=== PATIENT | male | born 1960 | race Caucasian/White ===

== ENCOUNTER 2019-02-01 07:06 | Day surgery (SDC) | payer MEDICAID ==
[2019-01-25 15:51] LABS: BASOPHILS % (AUTO) 0.7 % (0-1); EOSINOPHILS # (AUTO) 0.4 X10'3 (0-0.9); EOSINOPHILS % (AUTO) 4.9 % (0-6); LYMPHOCYTES # (AUTO) 2.4 X10'3 (1.1-4.8); LYMPHOCYTES % (AUTO) 31.3 % (21-51); MEAN CORPUSCULAR HEMOGLOBIN 29.7 PG (27.0-31.0); MEAN CORPUSCULAR HGB CONC 33.4 g/dL (33.0-36.5); MONOCYTES # (AUTO) 0.5 X10'3 (0-0.9); MONOCYTES % (AUTO) 6.5 % (2-12); NEUTROPHILS # (AUTO) 4.3 X10'3 (1.8-7.7); NEUTROPHILS % (AUTO) 56.6 % (42-75); PRE OP HEMATOCRIT 40.8 % (42.0-52.0); PRE OP HEMOGLOBIN 13.6 g/dL (14.0-17.9); PRE OP PLATELET COUNT 170 X10'3 (140-440); RED BLOOD COUNT 4.59 X10'6 (4.70-6.10); RED CELL DISTRIBUTION WIDTH 14.7 % (11.5-14.5)
[2019-01-25 16:05] LABS: ALBUMIN 3.9 G/DL (3.4-5.0); ALBUMIN/GLOBULIN RATIO 1.3 (1.1-1.5); ALKALINE PHOSPHATASE 92 IU/L (46-116); BLOOD UREA NITROGEN 15 MG/DL (7-18); BUN/CREATININE RATIO 10.1 (5.4-32.0); CALCIUM 9.9 MG/DL (8.5-10.1); CHLORIDE 104 MMOL/L (99-107); CREATININE 1.48 MG/DL (0.60-1.10); PRE OP ALT 45 U/L (30-65); PRE OP ANION GAP 7 (8-16); PRE OP AST 26 U/L (10-37); PRE OP BILIRUB, TOTAL 0.3 MG/DL (0.0-1.0); PRE OP GLUCOSE 84 MG/DL (70-104); PRE OP POTASSIUM 5.2 MMOL/L (3.4-5.1); PRE OP SODIUM 140 MMOL/L (135-145); TOTAL CARBON DIOXIDE 28.9 MMOL/L (24-32); TOTAL PROTEIN 6.8 G/DL (6.4-8.2); eGFR 49 ML/MIN
[~2019-02-01] VITALS: Ht 188 cm; Wt 120.2 kg
[2019-02-01] VITALS (8 sets, daily range): BP systolic 136–149; BP diastolic 72–88
[~2019-02-01 07:06] MED LIST: ASPI81TA52 PO; ATOR40TA71 PO; BUPIVAcaine/PF 2.5mg/ml (0.25%) 10ml vial ONE; BUSP10TA3 PO; GABA-532 PO; IBUP-1984 PO; LISI-600 PO; RANI300T4 PO; TRAZ150T78 PO; albuterol 2.5 MG/3 ML nebule NEB ONE; ceFAZolin 2gm in dextrose, iso 100 ML IV ONE; famotidine 20mg tablet PO ONE; ringers solution, lacted 1,000 ML IV SCH
[2019-02-01] MEDS ORDERED: ROPIVAcaine 0.5% (5mg/ml) 30ml vial ONE (09:25)
[2019-02-01] MEDS ORDERED: cloNIDine hcl/PF 100mcg/ml inj ONE (09:25)
[2019-02-01] MEDS ORDERED: fentaNYL/PF 50MCG/1 ML 2ML syringe ONE (10:07)
[2019-02-01] MEDS ORDERED: midazolam 2 mg/2 ml injection ONE (10:08)
[2019-02-01] MEDS ORDERED: sevoflurane 250ml liquid IH ONE (10:08)
[2019-02-01] MEDS ORDERED: BUPIVAcaine/PF 2.5mg/ml (0.25%) 10ml vial ONE (10:55)
[2019-02-01] MEDS ORDERED: propofol inj 20 ML IV ONE (11:14)
[2019-02-01] MEDS ORDERED: dexamethasone sod phosphate 4mg/ml inj. ONE (11:14)
--- NOTE | 2019-02-01 11:30 | NUR ---
Received from OR via [facility], accompanied by Anesthesiologist dr childers and report given by Anesthesiolgist. patient a&ox4, DENIES PAIN, V/S WNL, NEUROVASCULAR CHECKS INTACT. RUE PIV, SCD ON, ICE TO LUE AND ELEVATED, RUE DRESSING/SPLINT CDI.
[2019-02-01] MEDS ORDERED: ringers solution, lacted 1,000 ML IV SCH (11:39)
[2019-02-01] MEDS ORDERED: ondansetron/PF 4mg/2ml inj IV PRN (11:40)
[2019-02-01] MEDS ORDERED: meperidine/PF 25mg/ml syringe IV PRN ×3 (11:40)
[2019-02-01] MEDS ORDERED: proCHLORperazine 10 MG/2 ml inj IV PRN (11:40)
[2019-02-01] MEDS ORDERED: morphine 4 MG/ML inj SYRINge IV PRN ×2 (11:40)
--- NOTE | 2019-02-01 12:20 | NUR ---
patient a&ox4, DENIES PAIN, V/S WNL, NEUROVASCULAR CHECKS INTACT. RUE PIV, SCD ON, ICE TO LUE AND ELEVATED, LUE DRESSING CDI. ALL DC CRITERIA HAS BEEN MET. IV OUT WITHOUT ISSUE OR COMPLICATION. DENIES PAIN. FAMILY PRESENT FOR DC PAPERWORK. ALL QUESTIONS ANSWERED, FAMILY ASSISTED PATIENT IN GETTING DRESSED, OUT VIA WHEELCHAIR TO PERSONAL VEHICLE WHERE FAMILY DROVE PATIENT HOME. ALL DC CRITERIA HAS BEEN MET AND DRESSING IS CDI.
== END 2019-02-01 12:20 | disposition home or self-care (01) ==
LOC: PAS 07:06
PROVIDERS: ATTEND Orthopaedic Surgery Hand Surgery
DX: S52.202K Unspecified fracture of shaft of left ulna, subsequent encounter for closed fracture with nonunion (principal); M19.90 Unspecified osteoarthritis, unspecified site; F17.210 Nicotine dependence, cigarettes, uncomplicated; X58.XXXD Exposure to other specified factors, subsequent encounter; Z79.899 Other long term (current) drug therapy; Z72.89 Other problems related to lifestyle
CPT/HCPCS: 25405; 36415; 71046; 80053; 82948; 85025; 93005; 94640; 94760; A6222; A6449; C1713; J0690; J0735; J1100; J2250; J2704; J3010; J3490; J7120; A7000; J2795

== ENCOUNTER 2019-02-28 18:57 | Inpatient (IN) | payer MEDICAID ==
[~2019-02-28] VITALS: Ht 190.5 cm; Wt 124.0 kg
[~2019-02-28 18:57] MED LIST changes: -BUPIVAcaine/PF 2.5mg/ml (0.25%) 10ml vial ONE; -albuterol 2.5 MG/3 ML nebule NEB ONE; -ceFAZolin 2gm in dextrose, iso 100 ML IV ONE; -famotidine 20mg tablet PO ONE; -ringers solution, lacted 1,000 ML IV SCH
[2019-02-28 19:17] LABS: BASOPHILS # (AUTO) 0.2 X10'3 (0-0.2); BASOPHILS % (AUTO) 1.9 % (0-1); EOSINOPHILS # (AUTO) 0.4 X10'3 (0-0.9); EOSINOPHILS % (AUTO) 4.2 % (0-6); HEMOGLOBIN 13.7 g/dl (14.0-17.9); LYMPHOCYTES % (AUTO) 31.7 % (21-51); MEAN CORPUSCULAR HGB CONC 33.3 g/dL (33.0-36.5); MEAN PLATELET VOLUME 10.5 FL (7.4-10.4); MONOCYTES # (AUTO) 0.6 X10'3 (0-0.9); NEUTROPHILS # (AUTO) 5.2 X10'3 (1.8-7.7); NEUTROPHILS % (AUTO) 56.2 % (42-75); PLATELET COUNT 185 X10'3 (140-440); RED BLOOD COUNT 4.55 X10'6 (4.70-6.10); RED CELL DISTRIBUTION WIDTH 14.3 % (11.5-14.5); WHITE BLOOD COUNT 9.3 X10'3 (4.5-11.0)
[2019-02-28 19:31] LABS: ALANINE AMINOTRANSFERASE 25 U/L (12-78); ALBUMIN 3.9 G/DL (3.4-5.0); ALBUMIN/GLOBULIN RATIO 1.5 (1.1-1.5); ALKALINE PHOSPHATASE 93 IU/L (46-116); ANION GAP 9 (8-16); ASPARTATE AMINO TRANSFERASE 14 U/L (10-37); BILIRUBIN,TOTAL 0.2 MG/DL (0.1-1.0); BLOOD UREA NITROGEN 24 MG/DL (7-18); BUN/CREATININE RATIO 11.9 (5.4-32.0); CALCIUM 9.8 MG/DL (8.5-10.1); CHLORIDE 105 MMOL/L (99-107); CREATININE 2.02 MG/DL (0.60-1.10); GLUCOSE 107 MG/DL (70-104); POTASSIUM 4.8 MMOL/L (3.5-5.1); SODIUM 138 MMOL/L (135-145); TOTAL CARBON DIOXIDE 23.9 MMOL/L (24-32); TOTAL PROTEIN 6.5 G/DL (6.4-8.2); eGFR 34 ML/MIN
[2019-02-28 19:33] LABS: PARTIAL THROMBOPLASTIN TIME 28 SECONDS (22-32)
[2019-02-28] MEDS ORDERED: oxyCODONE/APAP 5-325mg tablet PO STA (20:14)
--- NOTE | 2019-02-28 20:15 | NUR ---
PT UPDATED ON TROPONIN. PT STATES THE ONLY THING THAT HURTS IS HIS ARM. INFORMED MD AND ORDERED PAIN MED
[2019-02-28] MEDS ORDERED: LOSA25TA96 PO (21:15)
[2019-02-28] MEDS ORDERED: ACET500C5 PO (21:17)
[2019-02-28] MEDS ORDERED: METO100T14 PO (21:18)
[2019-02-28] MEDS ORDERED: CYCL-394 (21:19)
[2019-02-28] MEDS ORDERED: ASPI81TA52 PO (21:24)
[2019-02-28] MEDS ORDERED: NITR0.4T51 SL (21:25)
[2019-02-28] MEDS ORDERED: CHOL400T PO (21:25)
[2019-02-28] MEDS ORDERED: mag hydrox/Alum hydrox/simeth 30ml oral suspension PO PRN (21:50)
[2019-02-28] MEDS ORDERED: magnesium hydroxide 30ml (MOM) UD suspension PO PRN (21:50)
[2019-02-28] MEDS ORDERED: ondansetron/PF 4mg/2ml inj IV PRN (21:50)
[2019-02-28] MEDS ORDERED: acetaminophen 325mg tablet PO PRN (21:50)
--- NOTE | 2019-02-28 22:35 | NUR ---
Patient in room PCU 3018. I have received report from Hoda JORDAN and had the opportunity to ask questions and assume patient care.
[2019-02-28 22:45] VITALS: BP 135/67
--- NOTE | 2019-02-28 22:45 | NUR ---
Patient brought up to room 3018A via gurney from the ER. Patient walked to bed steadily. All belongings on person, patient oriented to room, call light and plan of care. All questions answered. Vital signs stable and no chest pain complaint at this time. Will continue to monitor.
[2019-03-01] VITALS (12 sets, daily range): BP systolic 106–158; BP diastolic 63–81
[2019-03-01] MEDS: oxyCODONE/APAP 10/325mg tablet PO PRN ×3 (00:44→12:26)
[2019-03-01 01:51] LABS: BASOPHILS # (AUTO) 0.1 X10'3 (0-0.2); BASOPHILS % (AUTO) 1.5 % (0-1); EOSINOPHILS # (AUTO) 0.3 X10'3 (0-0.9); EOSINOPHILS % (AUTO) 3.5 % (0-6); HEMOGLOBIN 13.5 g/dl (14.0-17.9); LYMPHOCYTES # (AUTO) 2.7 X10'3 (1.1-4.8); LYMPHOCYTES % (AUTO) 35.5 % (21-51); MEAN CORPUSCULAR HEMOGLOBIN 30.2 PG (27.0-31.0); MEAN CORPUSCULAR HGB CONC 33.8 g/dL (33.0-36.5); MEAN CORPUSCULAR VOLUME 89.3 FL (78-98); MEAN PLATELET VOLUME 10.2 FL (7.4-10.4); MONOCYTES # (AUTO) 0.4 X10'3 (0-0.9); NEUTROPHILS # (AUTO) 4.2 X10'3 (1.8-7.7); NEUTROPHILS % (AUTO) 54.5 % (42-75); PLATELET COUNT 159 X10'3 (140-440); RED BLOOD COUNT 4.48 X10'6 (4.70-6.10); RED CELL DISTRIBUTION WIDTH 14.5 % (11.5-14.5); WHITE BLOOD COUNT 7.7 X10'3 (4.5-11.0)
[2019-03-01 02:03] LABS: ALANINE AMINOTRANSFERASE 25 U/L (12-78); ALBUMIN 3.5 G/DL (3.4-5.0); ALBUMIN/GLOBULIN RATIO 1.3 (1.1-1.5); ALKALINE PHOSPHATASE 87 IU/L (46-116); ANION GAP 8 (8-16); ASPARTATE AMINO TRANSFERASE 15 U/L (10-37); BILIRUBIN,TOTAL 0.2 MG/DL (0.1-1.0); BLOOD UREA NITROGEN 22 MG/DL (7-18); BUN/CREATININE RATIO 12.7 (5.4-32.0); CALCIUM 9.7 MG/DL (8.5-10.1); CHLORIDE 106 MMOL/L (99-107); CREATININE 1.73 MG/DL (0.60-1.10); GLUCOSE 125 MG/DL (70-104); POTASSIUM 4.1 MMOL/L (3.5-5.1); SODIUM 139 MMOL/L (135-145); TOTAL CARBON DIOXIDE 25.5 MMOL/L (24-32); TOTAL PROTEIN 6.1 G/DL (6.4-8.2); eGFR 41 ML/MIN
--- NOTE | 2019-03-01 06:27 | NUR ---
Problems reprioritized. Patient report given, questions answered & plan of care reviewed with Jessica JORDAN.
[2019-03-01] MEDS: busPIRone 5mg tablet PO SCH ×2 (07:47→12:26)
[2019-03-01] MEDS ORDERED: metoprolol tartrate 1mg/ml inj IV PRN (07:50)
[2019-03-01] MEDS ORDERED: nitroGLYCERIN 0.4mg SUBLingual tab SL PRN (07:50)
[2019-03-01] MEDS ORDERED: regadenoson 0.4mg/5ml syringe IV PRN (07:50)
[2019-03-01] MEDS ORDERED: aminophylline 250mg/10ml inj. IV PRN (07:50)
[2019-03-01] MEDS ORDERED: lisinopril 10 MG tablet PO SCH (08:00)
[2019-03-01] MEDS ORDERED: losartan 25mg tablet PO SCH (08:00)
[2019-03-01] MEDS ORDERED: atorvastatin 20mg tablet PO SCH (08:00)
[2019-03-01] MEDS ORDERED: metoprolol tartrate 50mg tablet PO SCH (08:00)
[2019-03-01] MEDS ORDERED: guaiFENesin ER 600mg tablet PO SCH (08:00)
[2019-03-01] MEDS ORDERED: gabapentin 300mg capsule PO SCH ×2 (08:00→21:00)
[2019-03-01] MEDS ORDERED: heparin, porcine 5000 units/ml vial SQ SCH (08:00)
[2019-03-01] MEDS ORDERED: aspirin 81mg tab.chew PO SCH (08:30)
[2019-03-01] MEDS ORDERED: aspirin 325mg tablet PO SCH (08:30)
[2019-03-01 08:47] LABS: CHOL/HDL RATIO 4.7 (0.00-4.99); CHOLESTEROL 137 MG/DL (0-200); HDL CHOLESTEROL 29 MG/DL (35-60); LDL CHOLESTEROL 95 MG/DL (50-100); TRIGLYCERIDES 136 MG/DL (20-135)
[2019-03-01] MEDS ORDERED: regadenoson 0.4mg/5ml syringe IV ONE (10:40)
[2019-03-01] MEDS ORDERED: aminophylline inj. 10 ML IV ONE (10:40)
--- NOTE | 2019-03-01 13:46 | NUR ---
PAGER ID: [phone] MESSAGE: [id number] Emma Parekh resulted, okay to feed? Jessica JORDAN [phone]
--- NOTE | 2019-03-01 15:57 | NUR ---
Patient discharged stable, discharge instructions given, patient verbalized understanding, PIV removed, cannula intact, tele box removed, personal belongings returned to patient. pt wheeled out by staff via w/c for transport home via [email or web address]
--- NOTE | 2019-03-01 16:00 | NUR ---
Orientee documentation: I have reviewed and agree with interventions, assessments performed and documented by NIKKI García.
[2019-03-01] MEDS ORDERED: traZODone 150mg tablet PO SCH (21:00)
[2019-03-01] MEDS ORDERED: famotidine 20mg tablet PO SCH (21:00)
== END 2019-03-01 15:18 | disposition home or self-care (01) | DRG 190 ==
LOC: ER 18:57 → PCU 3S 22:45
PROVIDERS: ADMIT Internal Medicine; ATTEND Internal Medicine
PROC: 4A02XM4 Measurement of Cardiac Total Activity, External Approach (ICD-10-PCS; principal; 2019-03-01)
PROC: 3E033HZ Introduction of Radioactive Substance into Peripheral Vein, Percutaneous Approach (ICD-10-PCS; 2019-03-01)
DX: I21.4 Non-ST elevation (NSTEMI) myocardial infarction (principal); E11.22 Type 2 diabetes mellitus with diabetic chronic kidney disease; E11.51 Type 2 diabetes mellitus with diabetic peripheral angiopathy without gangrene; N17.9 Acute kidney failure, unspecified; N18.3 Chronic kidney disease, stage 3 (moderate); E78.5 Hyperlipidemia, unspecified; I25.110 Atherosclerotic heart disease of native coronary artery with unstable angina pectoris; F12.90 Cannabis use, unspecified, uncomplicated; E78.00 Pure hypercholesterolemia, unspecified; F32.9 Major depressive disorder, single episode, unspecified; G47.33 Obstructive sleep apnea (adult) (pediatric); I12.9 Hypertensive chronic kidney disease with stage 1 through stage 4 chronic kidney disease, or unspecified chronic kidney disease; K21.9 Gastro-esophageal reflux disease without esophagitis; Z72.0 Tobacco use; Z80.1 Family history of malignant neoplasm of trachea, bronchus and lung; Z82.49 Family history of ischemic heart disease and other diseases of the circulatory system; Z82.5 Family history of asthma and other chronic lower respiratory diseases; Z88.8 Allergy status to other drugs, medicaments and biological substances; Z91.030 Bee allergy status; Z79.899 Other long term (current) drug therapy; Z79.82 Long term (current) use of aspirin; Z71.6 Tobacco abuse counseling
CPT/HCPCS: 36415; 71045; 78452; 80053; 80061; 84484; 85025; 85610; 85730; 87070; 93005; 93017; 93306; 99285; A9500; G0378; J0280; J1644

== ENCOUNTER 2019-03-10 20:24 | Emergency (ER) | payer MEDICAID ==
[~2019-03-10] VITALS: Ht 190.5 cm; Wt 94.3 kg
[~2019-03-10 20:24] MED LIST changes: +ACET500C5 PO; +CHOL400T PO; +CYCL-394; -LISI-600 PO; +LOSA25TA96 PO; +METO100T14 PO; +NITR0.4T51 SL
[2019-03-10 20:27] VITALS: BP 156/87
--- NOTE | 2019-03-10 23:17 | NUR ---
cast removed by tech per PA order. pt now has pain. provider will examine
[2019-03-10] MEDS ORDERED: HYDROcodone/acetaminophen 5mg/325mg tablet PO ONE (23:30)
== END 2019-03-10 23:40 | disposition home or self-care (01) ==
LOC: ER 20:25
DX: T81.89XA Other complications of procedures, not elsewhere classified, initial encounter (principal); M79.632 Pain in left forearm; I25.10 Atherosclerotic heart disease of native coronary artery without angina pectoris; E78.00 Pure hypercholesterolemia, unspecified; I10 Essential (primary) hypertension; I25.2 Old myocardial infarction; K21.9 Gastro-esophageal reflux disease without esophagitis; G89.29 Other chronic pain; Z46.89 Encounter for fitting and adjustment of other specified devices; Z98.890 Other specified postprocedural states; Z91.030 Bee allergy status; Z79.82 Long term (current) use of aspirin; Z79.899 Other long term (current) drug therapy; Y83.8 Other surgical procedures as the cause of abnormal reaction of the patient, or of later complication, without mention of misadventure at the time of the procedure; Y92.89 Other specified places as the place of occurrence of the external cause
CPT/HCPCS: 99282

== ENCOUNTER 2019-12-20 07:13 | Day surgery (SDC) | payer MEDICAID ==
[2019-12-12 11:40] LABS: PRE OP HEMOGLOBIN 14.7 g/dL (14.0-17.9); RED CELL DISTRIBUTION WIDTH 14.2 % (11.5-14.5)
[2019-12-12 11:42] LABS: BASOPHILS # (AUTO) 0.1 X10'3 (0-0.2); BASOPHILS % (AUTO) 1.3 % (0-1); EOSINOPHILS # (AUTO) 0.2 X10'3 (0-0.9); EOSINOPHILS % (AUTO) 3.4 % (0-6); LYMPHOCYTES # (AUTO) 1.8 X10'3 (1.1-4.8); LYMPHOCYTES % (AUTO) 26.3 % (21-51); MEAN CORPUSCULAR HEMOGLOBIN 30.5 PG (27.0-31.0); MEAN CORPUSCULAR VOLUME 89.7 FL (78-98); MONOCYTES # (AUTO) 0.4 X10'3 (0-0.9); MONOCYTES % (AUTO) 5.9 % (2-12); NEUTROPHILS # (AUTO) 4.3 X10'3 (1.8-7.7); NEUTROPHILS % (AUTO) 63.1 % (42-75); PRE OP HEMATOCRIT 43.1 % (42.0-52.0); PRE OP PLATELET COUNT 190 X10'3 (140-440); RED BLOOD COUNT 4.81 X10'6 (4.70-6.10)
[2019-12-12 11:57] LABS: ALBUMIN 4.5 G/DL (3.4-5.0); ALBUMIN/GLOBULIN RATIO 1.6 (1.1-1.5); ALKALINE PHOSPHATASE 107 IU/L (46-116); BLOOD UREA NITROGEN 13 MG/DL (7-18); BUN/CREATININE RATIO 8.2 (5.4-32.0); CALCIUM 10.6 MG/DL (8.5-10.1); CHLORIDE 105 MMOL/L (99-107); CREATININE 1.59 MG/DL (0.60-1.10); PRE OP ALT 37 U/L (30-65); PRE OP ANION GAP 2 (8-16); PRE OP AST 18 U/L (10-37); PRE OP BILIRUB, TOTAL 0.3 MG/DL (0.0-1.0); PRE OP GLUCOSE 97 MG/DL (70-104); PRE OP POTASSIUM 4.9 MMOL/L (3.4-5.1); PRE OP SODIUM 139 MMOL/L (135-145); TOTAL CARBON DIOXIDE 31.7 MMOL/L (24-32); TOTAL PROTEIN 7.4 G/DL (6.4-8.2); eGFR 45 ML/MIN
[~2019-12-20] VITALS: Ht 188 cm; Wt 114.0 kg
[~2019-12-20 07:13] MED LIST changes: +ALBU8.5H8 INH; -ATOR40TA71 PO; -CHOL400T PO; -CYCL-394; +FAMO20TA82 PO; +FLO0.4C PO; +LURA80TA3 PO; -METO100T14 PO; -RANI300T4 PO; +albuterol 2.5 MG/3 ML nebule NEB ONE; +ceFAZolin 2gm in dextrose, iso 50 ML IV ONE; +famotidine 20mg tablet PO ONE; +ringers solution, lacted 1,000 ML IV SCH
[2019-12-20 08:00] VITALS: BP 110/66
[2019-12-20] MEDS ORDERED: LIDOcaine 0.5% (5mg/ml) 50ml vial ONE (09:45)
[2019-12-20] MEDS ORDERED: BUPIVAcaine/PF 2.5mg/ml (0.25%) 10ml vial IJ ONE (10:16)
[2019-12-20] MEDS ORDERED: BUPIVAcaine/PF 2.5mg/ml (0.25%) 10ml vial ONE (10:21)
[2019-12-20] MEDS ORDERED: BUPIVAcaine/PF 2.5 mg/ml (0.25%) 30ml vial ONE (10:32)
[2019-12-20] MEDS ORDERED: fentaNYL/PF 50MCG/1 ML 2ML syringe ONE (10:36)
[2019-12-20] MEDS ORDERED: midazolam 2 mg/2 ml injection ONE (10:37)
[2019-12-20] MEDS ORDERED: propofol inj 20 ML IV ONE ×2 (11:14)
--- NOTE | 2019-12-20 11:20 | NUR ---
Received from OR via BED, accompanied by Anesthesiologist DR SAL and report given by Anesthesiolgist. PATIENT A&OX4, DENIES PAIN, V/S WNL, NEUROVASCULAR CHECKS INTACT, 20G PIV RUE, SCD ON, DRESSING TO LEFT WRIST CDI ELEVATED WITH ICEBAG APPLIED.
[2019-12-20 11:25] VITALS: BP 124/66
[2019-12-20 11:35] VITALS: BP 119/73
[2019-12-20 11:45] VITALS: BP 126/74
[2019-12-20 11:55] VITALS: BP 129/77
--- NOTE | 2019-12-20 11:55 | NUR ---
PATIENT A&OX4, DENIES PAIN, V/S WNL, NEUROVASCULAR CHECKS INTACT, 20G PIV RUE D/C, SCD OFF, DRESSING TO LEFT WRIST CDI ELEVATED WITH ICE BAG APPLIED. I HAVE REVIEWED D/C INSTRUCTIONS WITH PATIENT AND FAMILY AND THEY HAVE VERBALIZED UNDERSTANDING. PATIENT D/C HOME WITH ALL BELONGINGS AND FAMILY GAVE TRANSPORT HOME.
[2019-12-20] MEDS ORDERED: ringers solution, lacted 1,000 ML IV SCH (11:58)
[2019-12-20] MEDS ORDERED: ondansetron/PF 4mg/2ml inj IV PRN (12:00)
[2019-12-20] MEDS ORDERED: morphine 2 MG/ML inj. syringe IV PRN (12:00)
[2019-12-20] MEDS ORDERED: HYDROmorphone inj. 0.5 MG/0.5 ML DISP.SYRIN IV PRN ×2 (12:00)
[2019-12-20] MEDS ORDERED: morphine 4 MG/ML inj SYRINge IV PRN (12:00)
== END 2019-12-20 11:55 | disposition home or self-care (01) ==
LOC: PAS 07:13
PROVIDERS: ATTEND Orthopaedic Surgery Hand Surgery
DX: S63.592A Other specified sprain of left wrist, initial encounter (principal); G56.02 Carpal tunnel syndrome, left upper limb; I25.2 Old myocardial infarction; I25.10 Atherosclerotic heart disease of native coronary artery without angina pectoris; J45.909 Unspecified asthma, uncomplicated; G47.33 Obstructive sleep apnea (adult) (pediatric); I12.9 Hypertensive chronic kidney disease with stage 1 through stage 4 chronic kidney disease, or unspecified chronic kidney disease; N18.3 Chronic kidney disease, stage 3 (moderate); F41.9 Anxiety disorder, unspecified; F43.10 Post-traumatic stress disorder, unspecified; Z79.899 Other long term (current) drug therapy; Z72.89 Other problems related to lifestyle; Z87.891 Personal history of nicotine dependence; X58.XXXA Exposure to other specified factors, initial encounter; Y93.89 Activity, other specified; Y92.89 Other specified places as the place of occurrence of the external cause; Y99.8 Other external cause status
CPT/HCPCS: 29846; 64721; 80053; 82948; 85025; 93005; J2001; J2250; J2704; J3010; J3490; A4215; A7000; J7120

== ENCOUNTER 2022-04-26 11:33 | Day surgery (SDC) | payer MEDICAID ==
[2022-04-21 12:30] LABS: ALBUMIN 4.3 G/DL (3.4-5.0); ANION GAP 5 (8-16); BLOOD UREA NITROGEN 13 MG/DL (7-18); CALCIUM 10.1 MG/DL (8.5-10.1); CHLORIDE 105 MMOL/L (99-107); CREATININE 1.44 MG/DL (0.60-1.10); GLUCOSE 87 MG/DL (70-104); POTASSIUM 4.4 MMOL/L (3.5-5.1); SODIUM 136 MMOL/L (135-145); TOTAL CARBON DIOXIDE 26.2 MMOL/L (24-32); eGFR 50 ML/MIN
[2022-04-21 12:35] LABS: APTT 24 SECONDS (22-32)
[2022-04-26] VITALS (9 sets, daily range): BP systolic 104–154; BP diastolic 48–65
[~2022-04-26] VITALS: Ht 188 cm; Wt 130.6 kg
[~2022-04-26 11:33] MED LIST changes: +ALBU8.5H17 INH; -ALBU8.5H8 INH; +LURA80TA2 PO; -LURA80TA3 PO; -albuterol 2.5 MG/3 ML nebule NEB ONE; -ceFAZolin 2gm in dextrose, iso 50 ML IV ONE; -famotidine 20mg tablet PO ONE; -ringers solution, lacted 1,000 ML IV SCH
[2022-04-26 12:00] LABS: BASOPHILS # (AUTO) 0.1 X10'3 (0-0.2); BASOPHILS % (AUTO) 1.2 % (0-1); EOSINOPHILS # (AUTO) 0.3 X10'3 (0-0.9); EOSINOPHILS % (AUTO) 3.2 % (0-6); HEMATOCRIT 43.4 % (42.0-52.0); HEMOGLOBIN 14.7 g/dl (14.0-17.9); LYMPHOCYTES # (AUTO) 2.7 X10'3 (1.1-4.8); LYMPHOCYTES % (AUTO) 30.6 % (21-51); MEAN CORPUSCULAR HEMOGLOBIN 29.9 PG (27.0-31.0); MEAN CORPUSCULAR HGB CONC 33.8 g/dL (33.0-36.5); MEAN CORPUSCULAR VOLUME 88.3 FL (78-98); MEAN PLATELET VOLUME 9.4 FL (7.4-10.4); MONOCYTES # (AUTO) 0.6 X10'3 (0-0.9); MONOCYTES % (AUTO) 7.1 % (2-12); NEUTROPHILS # (AUTO) 5.1 X10'3 (1.8-7.7); NEUTROPHILS % (AUTO) 57.9 % (42-75); PLATELET COUNT 224 X10'3 (140-440); RED BLOOD COUNT 4.91 X10'6 (4.70-6.10); RED CELL DISTRIBUTION WIDTH 15.3 % (11.5-14.5); WHITE BLOOD COUNT 8.9 X10'3 (4.5-11.0)
[2022-04-26] MEDS ORDERED: normal saline 1,000 ML IV SCH (12:10)
[2022-04-26] MEDS ORDERED: diphenhydrAMINE 25mg capsule PO PRN (12:10)
[2022-04-26] MEDS ORDERED: LORazepam 0.5 MG tablet PO PRN (12:10)
[2022-04-26] MEDS ORDERED: ATOR40TA72 PO (12:19)
[2022-04-26] MEDS ORDERED: LOSA100T57 PO (12:19)
[2022-04-26] MEDS ORDERED: BUDE10.2 (12:20)
[2022-04-26] MEDS ORDERED: nitroGLYCERIN-Tridil 50MG/D5W 250 ML IV ONE (13:32)
[2022-04-26] MEDS ORDERED: heparin 1,000unit/ml 10ml vial 10 ML ONE (13:33)
[2022-04-26] MEDS ORDERED: midazolam 1 mg/ML 2ml injection ONE ×2 (13:33→14:07)
[2022-04-26] MEDS ORDERED: verapamil 2.5 mg/ml inj IV ONE (13:33)
[2022-04-26] MEDS ORDERED: iohexol 350MG/ML 100ml bottle IV ONE (13:33)
[2022-04-26] MEDS ORDERED: fentaNYL/PF 50MCG/1 ML 2ML syringe ONE (13:34)
[2022-04-26] MEDS ORDERED: ondansetron/PF 4mg/2ml inj IV PRN (15:10)
[2022-04-26] MEDS ORDERED: OXAZEpam 15mg capsule PO PRN (15:10)
[2022-04-26] MEDS ORDERED: proCHLORperazine 10 MG/2 ml inj IV PRN (15:10)
[2022-04-26] MEDS ORDERED: HYDROcodone/acetaminophen 5mg/325mg tablet PO PRN (15:10)
[2022-04-26] MEDS ORDERED: HYDROcodone/acetaminophen 10/325mg tab PO PRN (15:10)
== END 2022-04-26 17:00 | disposition home or self-care (01) ==
LOC: SSTAY O 11:33
PROVIDERS: ATTEND Internal Medicine Interventional Cardiology
DX: R94.39 Abnormal result of other cardiovascular function study (principal); R07.89 Other chest pain; I25.10 Atherosclerotic heart disease of native coronary artery without angina pectoris; G47.33 Obstructive sleep apnea (adult) (pediatric); I12.9 Hypertensive chronic kidney disease with stage 1 through stage 4 chronic kidney disease, or unspecified chronic kidney disease; N18.9 Chronic kidney disease, unspecified; E78.5 Hyperlipidemia, unspecified; Z79.899 Other long term (current) drug therapy; Z79.82 Long term (current) use of aspirin; Z87.891 Personal history of nicotine dependence
CPT/HCPCS: 36415; 80048; 85025; 85610; 85730; 93005; 93458; 99152; A6258; C1769; C1894; J1644; J2250; J3010; J3490; J7030; Q0163; Q9967; A4620; A6402

== ENCOUNTER 2024-05-04 12:16 | Outpatient (CLI) | payer MEDICAID ==
[~2024-05-04 12:16] MED LIST changes: -ACET500C5 PO; +ARIP15TA68 PO; +ATOR40TA72 PO; +BUDE10.2; -BUSP10TA3 PO; +CHOL100046 PO; +CLON0.5T4 PO; -FAMO20TA82 PO; -IBUP-1984 PO; +LORA10TA7 PO; +LOSA100T58 PO; -LOSA25TA96 PO; -LURA80TA2 PO
== END 2024-05-04 23:59 | disposition home or self-care (01) ==
LOC: MRI 12:16
PROVIDERS: ATTEND Specialist
DX: M75.121 Complete rotator cuff tear or rupture of right shoulder, not specified as traumatic (principal); M19.011 Primary osteoarthritis, right shoulder; M75.51 Bursitis of right shoulder; D17.79 Benign lipomatous neoplasm of other sites; M25.111 Fistula, right shoulder; M85.611 Other cyst of bone, right shoulder; M62.81 Muscle weakness (generalized); M25.811 Other specified joint disorders, right shoulder; M25.511 Pain in right shoulder
CPT/HCPCS: 73221